=== PATIENT | male | born 1990 | race Caucasian/White ===

== ENCOUNTER 2016-05-11 10:49 | Observation (INO) | payer OTHER ==
[2016-05-11] MEDS ORDERED: NS 1,000 ML IV ONE ×2 (11:31→14:29)
--- NOTE | 2016-05-11 11:38 | EDPHY ---
H & P Time Seen by Provider: 05/11/16 11:22 HPI/ROS: CHIEF COMPLAINT: Right lower quadrant pain HISTORY OF PRESENT ILLNESS: 25-year-old male presents with right lower quadrant pain. Onset of right lower quadrant pain last evening, persistent since then. Pain is moderate and increases with movement. Associated with nausea today and loose stools for 2 days. No fever or vomiting. REVIEW OF SYSTEMS: Constitutional: No fever, no chills Eyes: No visual changes ENT: No sore throat Respiratory: No cough, no shortness of breath Cardiac: No chest pain Genitourinary: No hematuria, no dysuria Musculoskeletal: No leg pain or swelling Skin: No rash Neurological: No headache, no weakness Psychiatric: No depression Past Medical/Surgical History: Polycystic kidney disease Social History: No recent alcohol Smoking Status: Never smoked Physical Exam: General Appearance: Alert, pleasant Eyes: Pupils equal and round, no conjunctival pallor or injection ENT, Mouth: Mucous membranes moist Neck: Normal inspection Respiratory: Lungs are clear to auscultation Cardiovascular: Regular rate and rhythm Gastrointestinal: Abdomen is soft, right lower quadrant tenderness Neurological: A&O, nonfocal, normal gait Skin: Warm and dry, no rash Extremities: normal inspection Psychiatric: Mood and affect normal Constitutional: Initial Vital Signs Temperature (C) 36.6 C 05/11/16 10:50 Heart Rate 81 05/11/16 10:50 Respiratory Rate 16 05/11/16 10:50 Blood Pressure 166/100 H 05/11/16 10:50 O2 Sat (%) 95 05/11/16 10:50 O2 Delivery Mode Nasal Cannula O2 (L/minute) 2 Allergies/Adverse Reactions: some antibx Allergy (Unknown, Uncoded 05/11/16 10:53) as child Home Medications: Medication Instructions Recorded NK [No Known Home Meds] 05/11/16 Medical Decision Making - Diagnostics Imaging: Right lower quadrant ultrasound read by Dr. Prudencio Bhatti: Nonvisualized appendix ED Course/Re-evaluation: Patient presents with suspected appendicitis. Normal saline 2 L given. Right lower quadrant ultrasound ordered. He declines pain and nausea medication at this time. Ultrasound reveals a nonvisualized appendix. CT scan of the abdomen pelvis read by Dr. Prudencio Bhatti reveals early appendicitis. Dr. Martinez was consulted and will see the patient in the emergency department. Invanz 1 g IV given. Differential Diagnosis: Differential diagnosis includes though it is not limited to appendicitis, cholecystitis, diverticulitis, pyelonephritis, bowel perforation, small bowel obstruction. - Data Points Laboratory Results: Laboratory Results 05/11/16 12:12 05/11/16 12:12 05/11/16 05/11/16 12:12 12:12 WBC 10.78 10^3/uL H 10^3/uL (3.80-9.50) RBC 4.99 10^6/uL 10^6/uL (4.40-6.38) Hgb 15.2 g/dL g/dL (13.7-17.5) Hct 42.4 % % (40.0-51.0) MCV 85.0 fL fL (81.5-99.8) MCH 30.5 pg pg (27.9-34.1) MCHC 35.8 g/dL g/dL (32.4-36.7) RDW 12.0 % % (11.5-15.2) Plt Count 176 10^3/uL 10^3/uL (150-400) MPV 10.5 fL fL (8.7-11.7) Neut % (Auto) 70.1 % % (39.3-74.2) Lymph % (Auto) 22.8 % % (15.0-45.0) Lynn % (Auto) 5.9 % % (4.5-13.0) Eos % (Auto) 0.5 % L % (0.6-7.6) Baso % (Auto) 0.3 % % (0.3-1.7) Nucleat RBC Rel Count 0.0 % % (0.0-0.2) Absolute Neuts (auto) 7.56 10^3/uL H 10^3/uL (1.70-6.50) Absolute Lymphs (auto) 2.46 10^3/uL 10^3/uL (1.00-3.00) Absolute Monos (auto) 0.64 10^3/uL 10^3/uL (0.30-0.80) Absolute Eos (auto) 0.05 10^3/uL 10^3/uL (0.03-0.40) Absolute Basos (auto) 0.03 10^3/uL 10^3/uL (0.02-0.10) Absolute Nucleated RBC 0.00 10^3/uL 10^3/uL (0-0.01) Immature Gran % 0.4 % % (0.0-1.1) Immature Gran # 0.04 10^3/uL 10^3/uL (0.00-0.10) Sodium 142 mEq/L mEq/L (134-144) Potassium 4.2 mEq/L mEq/L (3.5-5.2) Chloride 104 mEq/L mEq/L (97-110) Carbon Dioxide 26 mEq/l mEq/l (22-31) Anion Gap 12 mEq/L mEq/L (8-16) BUN 17 mg/dL mg/dL (7-23) Creatinine 1.3 mg/dL mg/dL (0.7-1.3) Estimated GFR > 60 Glucose 88 mg/dL mg/dL (70-100) Calcium 9.9 mg/dL mg/dL (8.5-10.4) Medications Given: Discontinued Medications Sodium Chloride (Ns) 1,000 mls @ 0 mls/hr IV ONCE ONE PRN Reason: Wide Open Stop: 05/11/16 11:32 Last Admin: 05/11/16 12:14 Dose: 1,000 mls Sodium Chloride (Ns) 1,000 mls @ 0 mls/hr IV ONCE ONE PRN Reason: Wide Open Stop: 05/11/16 14:30 Last Admin: 05/11/16 14:41 Dose: 1,000 mls Ertapenem 1 gm/ Sodium (Chloride) 100 mls @ 200 mls/hr IV EDNOW ONE PRN Reason: Protocol Stop: 05/11/16 14:59 Last Admin: 05/11/16 15:14 Dose: 100 mls Morphine Sulfate (Morphine) 6 mg IVP EDNOW ONE Stop: 05/11/16 12:51 Last Admin: 05/11/16 13:01 Dose: 6 mg Ondansetron HCl (Zofran) 4 mg IVP EDNOW ONE Stop: 05/11/16 12:51 Last Admin: 05/11/16 13:01 Dose: 4 mg Departure - Departure Disposition: [facility] Acute Clinical Impression: Acute appendicitis Qualifiers: Acute appendicitis type: with localized peritonitis Qualified Code(s): K35.3 - Acute appendicitis with localized peritonitis Condition: Good
[2016-05-11 12:29] LABS: % IMMATURE GRANULYOCYTES 0.4 % (0.0-1.1); ABSOLUTE IMMATURE GRANULOCYTES 0.04 10^3/uL (0.00-0.10); ADD DIFF? NO; ADD MORPH? NO; ADD SCAN? NO; ATYPICAL LYMPHOCYTE FLAG 0 (0-99); FRAGMENT RBC FLAG 0 (0-99); HEMATOCRIT 42.4 % (40.0-51.0); HEMOGLOBIN 15.2 g/dL (13.7-17.5); LEFT SHIFT FLG 0 (0-99); LIPEMIA HEMOLYSIS FLAG 90 (0-99); MEAN CELL HEMOGLOBIN 30.5 pg (27.9-34.1); MEAN CELL HEMOGLOBIN CONCENTR. 35.8 g/dL (32.4-36.7); MEAN PLATELET VOLUME 10.5 fL (8.7-11.7); PLATELET CLUMPS FLAG 0 (0-99); PLATELET COUNT 176 10^3/uL (150-400); RED BLOOD CELL COUNT 4.99 10^6/uL (4.40-6.38)
[2016-05-11] MEDS ORDERED: ONDANSETRON 4 MG/2 ML VIAL IVP ONE (12:50)
[2016-05-11 12:58] LABS: ANION GAP 12 mEq/L (8-16); CALCIUM 9.9 mg/dL (8.5-10.4); CARBON DIOXIDE 26 mEq/l (22-31); CHLORIDE 104 mEq/L (97-110); CREATININE 1.3 mg/dL (0.7-1.3); GLOMERULAR FILTRATION RATE > 60; GLUCOSE 88 mg/dL (70-100); POTASSIUM 4.2 mEq/L (3.5-5.2); SODIUM 142 mEq/L (134-144)
[2016-05-11] MEDS ORDERED: IOPAMIDOL (ISOVUE-300) 100 ML BTL IV ONE (13:46)
[2016-05-11] MEDS ORDERED: ERTAPENEM 1 GM in NS 100 ML IV ONE (14:30)
[2016-05-11] MEDS ORDERED: ceFAZolin 1 GM VIAL ONE (16:59)
[2016-05-11] MEDS ORDERED: HEPARIN 5,000 UNIT/0.5 ML SYR ONE (16:59)
[2016-05-11] MEDS ORDERED: ceFAZolin 1 GM/5 ML SYR ONE (17:00)
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
[2016-05-11] MEDS ORDERED: MIDAZOLAM 2 MG/2 ML VIAL ONE (17:44)
[2016-05-11] MEDS ORDERED: PROPOFOL 200 MG/20 ML VIAL ONE (17:46)
[2016-05-11] MEDS ORDERED: fentaNYL 250 MCG/5 ML INJ ONE (17:46)
[2016-05-11] MEDS ORDERED: ONDANSETRON 4 MG/2 ML VIAL ONE (17:47)
[2016-05-11] MEDS ORDERED: LIDOCAINE 2% 5 ML SDV ONE (17:47)
[2016-05-11] MEDS ORDERED: DEXAMETHASONE 4 MG/ML VIAL ONE ×2 (17:47)
[2016-05-11] MEDS ORDERED: ROCURONIUM 100 MG/10 ML VIAL ONE (17:47)
[2016-05-11] MEDS ORDERED: KETOROLAC 30 MG/1 ML SDV ONE (17:47)
[2016-05-11] MEDS ORDERED: GLYCOPYRROLATE 0.2 MG/1 ML VIAL ONE ×2 (18:37)
[2016-05-11] MEDS ORDERED: NEOSTIGMINE METHYLSULFATE 5 MG/5 ML SYR ONE (18:37)
[2016-05-11] MEDS ORDERED: ONDANSETRON 4 MG/2 ML VIAL IVP PRN (19:05)
--- NOTE | 2016-05-11 19:19 | POSTOPPROG ---
Post Op Note Date of Operation: 05/11/16 Surgeon: Carlos Enrique Martinez Anesthesia: GET(General Endotracheal) Pre-op Diagnosis: acute appendicitis Post-op Diagnosis: acute appendicitis Indication: acute appendicitis Procedure: laparoscopic appendectomy Findings: acute appendicitis Inf/Abcess present in the surg proc area at time of surgery?: No Complications: none
[2016-05-11] MEDS ORDERED: LR 1,000 ML IV SCH (19:30)
[2016-05-11] MEDS: HYDROmorphONE/DILAUDID 1 MG/ML SYR IVP PRN ×2 (19:48→21:01)
[2016-05-11] MEDS: ACETAMINOPHEN 500 MG TAB PO SCH (23:11)
--- NOTE | 2016-05-12 03:08 | GOP ---
DATE OF OPERATION: 05/11/2016 SURGEON: Carlos Enrique Martinez MD PREOPERATIVE DIAGNOSIS: Acute appendicitis. POSTOPERATIVE DIAGNOSIS: Acute appendicitis. PROCEDURE PERFORMED: Laparoscopic appendectomy. FINDINGS: Acute appendicitis. INDICATIONS: Acute appendicitis. DESCRIPTION OF PROCEDURE: The patient was placed in general endotracheal anesthesia. He emptied his bladder prior to surgery. The abdomen was carefully clipped, prepped and draped. A surgical time-out was carried out. It was agreed to by all members of the operative team. A curvilinear incision was planned at the umbilicus. The skin was sharply incised. Dissection was continued with Bovie electrocautery and a spreading technique to expose the anterior rectus sheath bilaterally. It was elevated between Allis clamps and divided in the midline sharply. Pursestring of #0 PDS was placed. The peritoneum was entered. An 11/12 disposable Carlos trocar was positioned. Intra-abdominal insufflation was carried out to 15 mmHg at high flow. A 5 mm left lower quadrant port was placed and a 5 mm suprapubic port was placed. There was no purulent fluid in the pelvis. The appendix is normal sized at its base but distended distally. The mesoappendix was elevated with an Endo Joes and divided to its base of the appendix, with the Harmonic scalpel. A 35 mm Endo-ELAINE stapler was placed across the appendix (including a cuff of cecum) and fired. The specimen was placed in an EndoCatch bag and delivered via the umbilical port site. Pneumoperitoneum was re-established. Irrigation with heparin and Ancef containing irrigant was carried out. Hemostasis was excellent. The small bowel was run for a distance of 3 feet. There was 1 lymph node near the ileocolic vessels which is enlarged, but no other lymphadenopathy was identified. There is no evidence of a Meckel's diverticulum. Photographic documentation was carried out of the appendix, appendiceal stump, and the gallbladder. Ports were now removed under direct vision. Pneumoperitoneum has been released. A simple suture was placed side to side in the midpoint of the midline fascial incision in the infraumbilical area. This was tied. The pursestring was now tied. Irrigation was carried out. Hemostasis was checked and found to be excellent. All incisions were now closed with inverted simple sutures of 4-0 Vicryl. Mastisol and Steri-Strips were placed. Band-Aids were positioned. The patient was transferred to recovery in stable and satisfactory condition. /[id number]/MODL MTDD
[2016-05-12] MEDS: ACETAMINOPHEN 500 MG TAB PO SCH (06:26)
[2016-05-12 07:09] LABS: ANION GAP 10 mEq/L (8-16); CALCIUM 9.6 mg/dL (8.5-10.4); CARBON DIOXIDE 24 mEq/l (22-31); CHLORIDE 108 mEq/L (97-110); CREATININE 1.1 mg/dL (0.7-1.3); GLOMERULAR FILTRATION RATE > 60; GLUCOSE 123 mg/dL (70-100); POTASSIUM 4.8 mEq/L (3.5-5.2); SODIUM 142 mEq/L (134-144)
[2016-05-12 07:50] VITALS: O2SAT 94
[2016-05-12] MEDS: HYDROmorphONE/DILAUDID 1 MG/ML SYR IVP PRN ×2 (09:07→11:45)
[2016-05-12 12:41] VITALS: BP 121/72; PULSE 93; RESP 18; TEMP 98.5
--- NOTE | 2016-05-12 12:57 | SOAPPROG ---
SOAP Progress Note Assessment/Plan: 05/12/16 12:53 POD#1 Assessment: Doing well. Pain controlled. incisions clean and dry. taking a regular diet Plan: Consider discharge after a trial of oral Dilaudid Subjective: No complaints Objective: Vital Signs Temp Pulse Resp BP Pulse Ox 36.9 C 93 18 121/72 H 94 05/12/16 12:40 05/12/16 12:40 05/12/16 12:40 05/12/16 12:40 05/12/16 12:40 Laboratory Results 05/12/16 06:30 05/11/16 05/12/16 05/13/16 05:59 05:59 05:59 Intake Total 5150 Output Total 830 Balance 4320 - Time Spent With Patient Time Spent With Patient: 25 - Pending Discharge Pending Discharge Within 24 Hours: Yes Pending Discharge Date: 05/13/16 Pending Discharge Time: 13:00 Physical Exam - Physical Exam General Appearance: WD/WN, alert, no apparent distress Neck: non-tender, full range of motion, supple Respiratory: chest non-tender, lungs clear, normal breath sounds Cardiac/Chest: regular rate, rhythm Abdomen: normal bowel sounds, non-tender, soft, other (Incisions clean, dry and well approximated) Male Genitalia: deferred Rectal: deferred Back: Normal inspection Skin: normal color, warm/dry Extremities: normal range of motion, non-tender Neuro/Psych: no motor/sensory deficits, alert, normal mood/affect, oriented x 3 ICD10 Worksheet Patient Problems: Problems Problem Status Onset Acute appendicitis Acute
[2016-05-12] MEDS ORDERED: HYDROmorphONE/DILAUDID 2 MG TAB PO PRN (12:58)
--- NOTE | 2016-05-12 14:25 | GDS ---
DISCHARGE DIAGNOSIS: 1. Acute unruptured appendicitis. 2. Polycystic kidney disease (creatinine 1.1). PROCEDURE: Laparoscopic appendectomy. DISPOSITION: Home. CONDITION: Improved. MEDICATIONS: Tylenol 1000 mg every 8 hours as needed for pain, Dilaudid 2 mg, 1-2 tablets p.o. q.4h p.r.n. severe pain. DIET: Unrestricted, although I have recommended that he avoid constipating foods such as bananas, r ice, applesauce, and cheese. I have also suggested he take a multivitamin with zinc, copper, and C daily. RESTRICTIONS: He is to lift less than 10 pounds for the next 3 weeks. He is to keep the Steri-Stri ps in place. He is to shower only. He is to watch for signs of infection as manifested by, at the superficial level, redness, warmth, swelling, and tenderness, and the deep level, fatigue, fevers, c hills, and loss of appetite. He will follow up with Dr. Narinder Clinton in 2 weeks as needed. HOSPITAL COURSE: The patient was admitted and taken to the operating room, where an uncomplicated e alejandar acute appendicitis was dealt with. He has done well postoperatively. He is set for discharge today. /[id number]/MODL
== END 2016-05-12 14:35 | disposition home or self-care (01) ==
LOC: FOB 19:30
PROVIDERS: ADMIT Surgery; ATTEND Surgery
PROC: 0DTJ4ZZ Resection of Appendix, Percutaneous Endoscopic Approach (ICD-10-PCS; principal; 2016-05-11 16:00)
DX: K35.80 Unspecified acute appendicitis (principal); Q61.3 Polycystic kidney, unspecified; M43.06 Spondylolysis, lumbar region
CPT/HCPCS: 44970; 74177; 76705; G0378; 96374; J0690; J1100; J1170; J1335; J1885; J2250; J2405; J2704; J2710; J3010; Q9967